=== PATIENT | male | born 1985 | race Caucasian/White ===

== ENCOUNTER 2018-01-23 15:35 | Emergency (ER) | END 2018-01-23 16:55 | disposition home or self-care (01) ==

== ENCOUNTER 2018-07-29 17:18 | Emergency (ER) | payer MEDICAID ==
[~2018-07-29] VITALS: Ht 167.6 cm; Wt 82.4 kg
[~2018-07-29 17:18] MED LIST: OFLO5DRO46 LEFT EYE
[2018-07-29 17:21] VITALS: BP 116/62; PULSE 80; RESP 16; Ht 167.6 cm; Wt 82.4 kg
[2018-07-29] MEDS ORDERED: ACETAMINOPHEN 325 MG TAB PO ONE (19:00)
[2018-07-29] MEDS ORDERED: IBUP-1542 PO (19:57)
--- NOTE | 2018-07-29 19:57 | ERD ---
ER Documentation Chief Complaint Chief Complaint L-4TH DIGIT PAIN S/P FALL WHILE WALKING TODAY HPI 33-year-old male presents with left fourth digit pain after falling and tripping today. He has restricted range of motion due to pain but no weakness or deficits. He denies any other injury. Denies any bleeding or redness. ROS All systems reviewed and are negative except as per history of present illness. Medications Home Meds Active Scripts Ofloxacin* (Ocuflox*) 0.3%-5 Ml Ophth Drops, 1 DROP LEFT EYE QID, #1 BOTTLE Prov:NATALY MADRIGAL PA-C 01/23/18 Allergies Allergies: Coded Allergies: No Known Allergy (Unverified , 07/29/18) PMhx/Soc Hx Alcohol Use: No Hx Substance Use: No Hx Tobacco Use: No Smoking Status: Never smoker FmHx Family History: No diabetes, No coronary disease, No other Physical Exam Vitals Vital Signs Date Temp Pulse Resp B/P (MAP) Pulse Ox O2 O2 Flow FiO2 Time Delivery Rate 07/29/18 97.9 80 16 116/62 97 17:21 (80) Physical Exam Const: No acute distress Head: Atraumatic Eyes: Normal Conjunctiva ENT: Normal External Ears, Nose and Mouth. Neck: Full range of motion. No meningismus. Resp: Clear to auscultation bilaterally Cardio: Regular rate and rhythm, no murmurs Abd: Soft, non tender, non distended. Normal bowel sounds Skin: No petechiae or rashes Back: No midline or flank tenderness Ext: No cyanosis, or edema tenderness and swelling around the left fourth PIP joint. No deficits. He has mild restricted range of motion to flexion due to pain. There is no erythema or warmth. Cap refill is less than 2 seconds. Neur: Awake and alert Psych: Normal Mood and Affect Results 24 hrs Current Medications Medications Dose Sig/Wendy Start Time Status Last (Trade) Ordered Route PRN Stop Time Admin Dose Reason Admin 650 mg ONCE ONCE 07/29/18 DC 07/29/18 Acetaminophen PO 19:00 07/29/18 19:11 (Tylenol 19:01 Tab) Procedures/MDM X-ray left ring finger 2V Interpreted by me: Bones: No fracture Joints: No dislocation Foreign body: None. Impression-normal left ring finger x-ray Specimen left fourth digit metal splint. Patient is neurovascular intact after splint. Patient has signs and symptoms of left fourth digit sprain without signs of infection, deficits, fracture, dislocation, infection. Discharged home with ibuprofen, and recommendations for primary care follow-up and return precautions for fevers, redness, new worsening symptoms. He may need an orthopedic evaluation for persistent pain next week. He may need author ization from his primary care doctor for orthopedist visit. Departure Condition: Stable JESSE FAGAN MD Jul 29, 2018 19:56
== END 2018-07-29 21:22 | disposition home or self-care (01) ==
LOC: FTE 17:18
DX: M79.645 Pain in left finger(s) (principal)
CPT/HCPCS: 29130; 73140; Z7502; Z7610